=== PATIENT | male | born 1990 | race Caucasian/White ===

== ENCOUNTER 2023-12-24 11:44 | Emergency (ER) | payer OTHER ==
[~2023-12-24] VITALS: Ht 182.9 cm; Wt 79.5 kg
[2023-12-24 11:52] VITALS: BP 142/74; PULSE 94; RESP 18; TEMP 98.2
[2023-12-24] MEDS ORDERED: PERM60CR4 TP (13:38)
== END 2023-12-24 13:54 | disposition home or self-care (01) ==
LOC: EMS 11:46
DX: B86 Scabies (principal)
CPT/HCPCS: 99282; Z7502